=== PATIENT | male | born 1955 | race Caucasian/White ===

== ENCOUNTER 2016-11-04 20:07 | Inpatient (IN) | payer BC ==
[~2016-11-04] VITALS: Ht 167.6 cm; Wt 62.6 kg
[~2016-11-04 20:07] MED LIST: ATOR40TA PO; AZAT50TA7 PO; BUDE9TAB PO; CLOP75TA2 PO; LISI-603 PO; METO25TA20 PO; PRED50TA PO; TEMA15CA PO; ZOLP5TAB2 PO
[2016-11-04] MEDS ORDERED: ASPIRIN 81 MG TAB.CHEW ONE (20:26)
[2016-11-04 20:30] LABS: BASOPHILS # (AUTO) 0.1 /CMM (0.0-0.2); DIFF TOTAL % 100 %; EOSINOPHILS # (AUTO) 0.1 /CMM (0.0-0.7); EOSINOPHILS % (AUTO) 1.2 % (0.0-6.0); HEMATOCRIT 42 % (39-51); HEMOGLOBIN 13.9 g/dL (13.5-17.5); LYMPHOCYTES # (AUTO) 1.3 /CMM (0.8-4.8); LYMPHOCYTES % (AUTO) 20.1 % (20.0-44.0); MEAN CORPUSCULAR HEMOGLOBIN 31 PG (26.0-33.0); MEAN CORPUSCULAR HGB CONC 33 g/dl (31.0-36.0); MEAN CORPUSCULAR VOLUME 95 fL (80-96); MONOCYTES # (AUTO) 0.8 /CMM (0.1-1.30); MONOCYTES % (AUTO) 12.8 % (2.0-12.0); NEUTROPHILS # (AUTO) 4.1 /CMM (1.8-8.9); NEUTROPHILS % (AUTO) 64.9 % (43.0-81.0); PLATELET COUNT (AUTO) 345 /CMM (150-450); RED BLOOD CELL COUNT(AUTO) 4.46 MIL/uL (4.5-6.0); WHITE BLOOD COUNT (AUTO) 6.4 K/uL (4.3-11.0)
[2016-11-04] MEDS ORDERED: ASPIRIN 81 MG TAB.CHEW PO ONE (20:30)
[2016-11-04 20:41] LABS: CALCIUM, SERUM 8.9 mg/dL (8.5-10.1); POTASSIUM 3.5 mmol/L (3.5-5.1)
[2016-11-04 20:45] LABS: INR 0.96 (0.87-1.13); PROTHROMBIN TIME 10.1 SECS (9.5-12.7)
[2016-11-04 20:46] LABS: ALBUMIN 3.2 g/dL (3.4-5.0); BILIRUBIN,DIRECT 0.1 mg/dL (0.0-0.2); BILIRUBIN,TOTAL 0.4 mg/dL (0.2-1.0); INDIRECT BILIRUBIN 0.3 mg/dL (0.0-1.1); TOTAL PROTEIN, SERUM 6.9 g/dL (6.4-8.2)
[2016-11-04 20:49] LABS: TROPONIN I 0.21 ng/mL (0.00-0.056)
[2016-11-04] MEDS ORDERED: NITROGLYCERIN PACKET 1 GM PACKET TD ONE (21:00)
[2016-11-04] MEDS ORDERED: NITROGLYCERIN PACKET 1 GM PACKET ONE (21:00)
[2016-11-04] MEDS ORDERED: ENOXAPARIN SODIUM 60 MG/0.6 ML DISP.SYRIN SQ ONE ×2 (21:25→21:30)
[2016-11-04 21:45] VITALS: BP 152/72
[2016-11-04] MEDS ORDERED: ACETAMINOPHEN 325 MG TABLET PO PRN (22:00)
[2016-11-04] MEDS ORDERED: ZOLPIDEM TARTRATE 5 MG TABLET PO SCH (22:00)
[2016-11-04] MEDS ORDERED: ONDANSETRON HCL/PF 4 MG/2 ML VIAL IVP PRN (22:00)
[2016-11-04] MEDS ORDERED: TEMAZEPAM 15 MG CAPSULE PO SCH (22:00)
[2016-11-04] MEDS ORDERED: Z GUARD REMEDY 2 OZ OINT TP PRN (22:00)
[2016-11-04] MEDS ORDERED: MAG HYDROX/AL HYDROX/SIMETH 30 ML UDC PO PRN (22:00)
[2016-11-04] MEDS ORDERED: MORPHINE SULFATE INJ 2 MG/ML DISP.SYRIN IV PRN (22:00)
[2016-11-04] MEDS ORDERED: MAGNESIUM HYDROXIDE 30 ML UDC PO PRN (22:00)
[2016-11-04] MEDS ORDERED: HYDROCODONE/APAP 5/325MG 1 EACH TABLET PO PRN (22:00)
[2016-11-04] MEDS ORDERED: TEMAZEPAM 15 MG CAPSULE PO PRN (22:00)
[2016-11-04] MEDS ORDERED: ZOLPIDEM TARTRATE 5 MG TABLET PO PRN (22:00)
[2016-11-05] VITALS: BP 118/72
[2016-11-05] MEDS ORDERED: HYDROCODONE/APAP 5/325MG 1 EACH TABLET ONE (00:38)
[2016-11-05] MEDS ORDERED: NITROGLYCERIN PACKET 1 GM PACKET ONE (00:39)
[2016-11-05] MEDS: NITROGLYCERIN PACKET 1 GM PACKET TOP SCH ×2 (00:45→06:00)
[2016-11-05 04:28] VITALS: BP 113/58
[2016-11-05] MEDS ORDERED: MORPHINE SULFATE INJ 2 MG/ML DISP.SYRIN ONE (06:34)
[2016-11-05] MEDS ORDERED: PANTOPRAZOLE 40 MG TABLET.DR PO SCH (07:30)
[2016-11-05 08:00] VITALS: BP 115/61
[2016-11-05 08:36] LABS: BASOPHILS % (AUTO) 0.7 % (0.0-2.0); DIFF TOTAL % 100 %; EOSINOPHILS % (AUTO) 0.8 % (0.0-6.0); HEMATOCRIT 39 % (39-51); HEMOGLOBIN 13.1 g/dL (13.5-17.5); LYMPHOCYTES % (AUTO) 16.4 % (20.0-44.0); MEAN CORPUSCULAR HEMOGLOBIN 32 PG (26.0-33.0); MEAN CORPUSCULAR HGB CONC 33 g/dl (31.0-36.0); MEAN CORPUSCULAR VOLUME 95 fL (80-96); MONOCYTES # (AUTO) 0.7 /CMM (0.1-1.30); MONOCYTES % (AUTO) 12.3 % (2.0-12.0); NEUTROPHILS # (AUTO) 4.2 /CMM (1.8-8.9); NEUTROPHILS % (AUTO) 69.8 % (43.0-81.0); PLATELET COUNT (AUTO) 302 /CMM (150-450); RED BLOOD CELL COUNT(AUTO) 4.11 MIL/uL (4.5-6.0)
[2016-11-05 08:39] LABS: CALCIUM, SERUM 8.3 mg/dL (8.5-10.1); CREATININE 0.9 mg/dL (0.6-1.3); PHOSPHORUS 3.6 mg/dL (2.5-4.9)
[2016-11-05 08:40] VITALS: BP 115/61
[2016-11-05] MEDS ORDERED: LISINOPRIL (20MG) 20 MG TABLET PO SCH (09:00)
[2016-11-05] MEDS ORDERED: Medication Not On Formulary EA (Budesonide (Uceris) 9 MG) PO SCH (09:00)
[2016-11-05] MEDS ORDERED: ATORVASTATIN 40 MG TABLET PO SCH ×2 (09:00)
[2016-11-05] MEDS ORDERED: ASPIRIN 325 MG TABLET PO SCH (09:00)
[2016-11-05] MEDS ORDERED: CLOPIDOGREL BISULFATE 75 MG TABLET PO SCH (09:00)
[2016-11-05] MEDS ORDERED: METOPROLOL TARTRATE 25 MG TABLET PO SCH (09:00)
[2016-11-05] MEDS ORDERED: AZATHIOPRINE 50 MG TABLET PO SCH (09:00)
[2016-11-05] MEDS ORDERED: ASPIRIN 81 MG TAB.CHEW PO SCH (09:00)
[2016-11-05] MEDS ORDERED: HEPARIN INFUSION/D5W 500 ML IV PRN (09:30)
[2016-11-05] MEDS: predniSONE 20 MG TABLET PO SCH ×2 (09:30→10:43)
[2016-11-05] MEDS ORDERED: ENOXAPARIN SODIUM 60 MG/0.6 ML DISP.SYRIN SQ SCH (09:30)
[2016-11-05] MEDS ORDERED: NITROGLYCERIN 30 GM TUBE TP SCH (09:30)
[2016-11-05 10:43] VITALS: BP 149/69
[2016-11-05] MEDS ORDERED: IV SET PRIMARY PUMP SET 1 EA INFUS.SET MC ONE (10:48)
[2016-11-05] MEDS ORDERED: HEPARIN SODIUM, PORCINE 5000 UNITS/1 ML VIAL SQ ONE (11:30)
[2016-11-05] MEDS ORDERED: HEPARIN SODIUM, PORCINE 5000 UNITS/1 ML VIAL IV ONE (12:00)
== END 2016-11-05 16:16 | disposition short-term general hospital (02) | DRG 281 ==
LOC: ER 20:11 → TELE 21:50
PROVIDERS: ADMIT Internal Medicine; ATTEND Internal Medicine
DX: I21.4 Non-ST elevation (NSTEMI) myocardial infarction (principal); K51.90 Ulcerative colitis, unspecified, without complications; I25.10 Atherosclerotic heart disease of native coronary artery without angina pectoris; Z95.5 Presence of coronary angioplasty implant and graft; I10 Essential (primary) hypertension; E78.00 Pure hypercholesterolemia, unspecified
CPT/HCPCS: 36415; 71010-TC; 80048-TC; 80061-TC; 80076-TC; 83735-TC; 84100-TC; 84484-TC; 85025-TC; 85730-TC; 87081-TC; A4606; J1644; J1650; J2270; J7500; Z7610

== ENCOUNTER 2016-12-17 19:22 | Inpatient (IN) | payer BC ==
[~2016-12-17] VITALS: Ht 172.7 cm; Wt 59.0 kg
[~2016-12-17 19:22] MED LIST changes: -PRED50TA PO
[2016-12-17] MEDS ORDERED: methylPREDNISolone SOD SUCC 125 MG/2ML VIAL ONE (19:47)
[2016-12-17 19:50] LABS: BASOPHILS # (AUTO) 0.1 /CMM (0.0-0.2); BASOPHILS % (AUTO) 0.7 % (0.0-2.0); DIFF TOTAL % 100 %; EOSINOPHILS # (AUTO) 0.1 /CMM (0.0-0.7); HEMATOCRIT 41 % (39-51); HEMOGLOBIN 14.1 g/dL (13.5-17.5); LYMPHOCYTES # (AUTO) 0.8 /CMM (0.8-4.8); LYMPHOCYTES % (AUTO) 9.5 % (20.0-44.0); MEAN CORPUSCULAR HEMOGLOBIN 32 PG (26.0-33.0); MEAN CORPUSCULAR HGB CONC 34 g/dl (31.0-36.0); MEAN CORPUSCULAR VOLUME 93 fL (80-96); MONOCYTES # (AUTO) 0.9 /CMM (0.1-1.30); MONOCYTES % (AUTO) 9.9 % (2.0-12.0); NEUTROPHILS # (AUTO) 6.7 /CMM (1.8-8.9); NEUTROPHILS % (AUTO) 78.9 % (43.0-81.0); PLATELET COUNT (AUTO) 378 /CMM (150-450); RED BLOOD CELL COUNT(AUTO) 4.45 MIL/uL (4.5-6.0); WHITE BLOOD COUNT (AUTO) 8.6 K/uL (4.3-11.0)
[2016-12-17] MEDS ORDERED: methylPREDNISolone SOD SUCC 125 MG/2ML VIAL IV ONE (20:00)
[2016-12-17 20:06] LABS: ALANINE AMINOTRANSFERASE 16 U/L (12-78); ALBUMIN 3.7 g/dL (3.4-5.0); ANION GAP 9 (5-14); ASPARTATE AMINOTRANSFERASE 14 U/L (15-37); BILIRUBIN,DIRECT 0.1 mg/dL (0.0-0.2); BILIRUBIN,TOTAL 0.3 mg/dL (0.2-1.0); CALCIUM, SERUM 8.7 mg/dL (8.5-10.1); CARBON DIOXIDE 30 mmol/L (21-32); CHLORIDE 99 mmol/L (98-107); CREATININE 0.9 mg/dL (0.6-1.3); GFR 85 mL/min (>60); GLUCOSE 94 mg/dL (74-106); INDIRECT BILIRUBIN 0.2 mg/dL (0.0-1.1); SODIUM SERUM 134 mmol/L (136-145); TOTAL PROTEIN, SERUM 7.3 g/dL (6.4-8.2); UREA NITROGEN, BLOOD 10 mg/dL (7-18)
[2016-12-17 20:09] LABS: TROPONIN I < 0.017 ng/mL (0.00-0.056)
[2016-12-17 20:16] LABS: INR 0.96 (0.87-1.13); PROTHROMBIN TIME 10.1 SECS (9.5-12.7)
[2016-12-17 21:25] VITALS: BP 140/78
[2016-12-17] MEDS ORDERED: ATORVASTATIN 40 MG TABLET ONE (23:47)
[2016-12-17] MEDS ORDERED: TEMAZEPAM 15 MG CAPSULE ONE (23:47)
[2016-12-17] MEDS: ATORVASTATIN 40 MG TABLET PO SCH (23:52)
[2016-12-17] MEDS: TEMAZEPAM 15 MG CAPSULE PO SCH (23:52)
[2016-12-18] VITALS (7 sets, daily range): BP systolic 97–129; BP diastolic 67–78
[2016-12-18] MEDS ORDERED: ONDANSETRON HCL/PF 4 MG/2 ML VIAL IV PRN
[2016-12-18] MEDS ORDERED: ACETAMINOPHEN 325 MG TABLET PO PRN
[2016-12-18] MEDS ORDERED: IV SET PRIMARY PUMP SET 1 EA INFUS.SET MC ONE (00:02)
[2016-12-18] MEDS ORDERED: IV NS 0.9% 1,000 ML ONE (00:02)
[2016-12-18] MEDS: IV NS 0.9% 1,000 ML IV PRN ×2 (00:14→13:53)
[2016-12-18 00:42] LABS: HEMOGLOBIN 13.7 g/dL (13.5-17.5)
[2016-12-18 07:03] LABS: DIFF TOTAL % 100 %; HEMATOCRIT 39 % (39-51); HEMOGLOBIN 13.1 g/dL (13.5-17.5); LYMPHOCYTES # (AUTO) 0.4 /CMM (0.8-4.8); LYMPHOCYTES % (AUTO) 6.3 % (20.0-44.0); MEAN CORPUSCULAR HEMOGLOBIN 31 PG (26.0-33.0); MEAN CORPUSCULAR HGB CONC 34 g/dl (31.0-36.0); MEAN CORPUSCULAR VOLUME 93 fL (80-96); MONOCYTES % (AUTO) 0.5 % (2.0-12.0); NEUTROPHILS # (AUTO) 6.3 /CMM (1.8-8.9); NEUTROPHILS % (AUTO) 93.2 % (43.0-81.0); PLATELET COUNT (AUTO) 361 /CMM (150-450); RED BLOOD CELL COUNT(AUTO) 4.19 MIL/uL (4.5-6.0); WHITE BLOOD COUNT (AUTO) 6.7 K/uL (4.3-11.0)
[2016-12-18 07:18] LABS: ALBUMIN 3.2 g/dL (3.4-5.0); BILIRUBIN,TOTAL 0.3 mg/dL (0.2-1.0); CALCIUM, SERUM 8.9 mg/dL (8.5-10.1); CREATININE 0.9 mg/dL (0.6-1.3); PHOSPHORUS 3.6 mg/dL (2.5-4.9); POTASSIUM 4.4 mmol/L (3.5-5.1); TOTAL PROTEIN, SERUM 6.7 g/dL (6.4-8.2)
[2016-12-18 07:22] LABS: C-REACTIVE PROTEIN 0.7 mg/dL (0.0-0.9)
[2016-12-18 07:39] LABS: ERYTHROCYTE SEDIMENTATION RATE 12 MM/HR (0-20)
[2016-12-18] MEDS: AZATHIOPRINE 50 MG TABLET PO SCH (08:49)
[2016-12-18] MEDS: ATORVASTATIN 40 MG TABLET PO SCH (08:49)
[2016-12-18] MEDS: METOPROLOL TARTRATE 25 MG TABLET PO SCH (08:50)
[2016-12-18] MEDS: LISINOPRIL (20MG) 20 MG TABLET PO SCH (08:50)
[2016-12-18] MEDS ORDERED: BUDESONIDE 3 MG CAP.SR.24H PO SCH (09:00)
[2016-12-18] MEDS ORDERED: BUDESONIDE 3 MG PO SCH (09:00)
[2016-12-18] MEDS: ASPIRIN 81 MG TAB.CHEW PO SCH (11:40)
[2016-12-18] MEDS: CLOPIDOGREL BISULFATE 75 MG TABLET PO SCH (11:40)
[2016-12-18] MEDS ORDERED: MENTHOL/CETYLPYRD (CEPACOL) 1 LOZ LOZENGE PO PRN (17:30)
[2016-12-18] MEDS: TEMAZEPAM 15 MG CAPSULE PO SCH (21:54)
[2016-12-19] VITALS: BP 98/43
[2016-12-19] MEDS ORDERED: GUAIFENESIN/D-METHORPHAN HB 5 ML UDC ONE (00:21)
[2016-12-19] MEDS: GUAIFENESIN/D-METHORPHAN HB 5 ML UDC PO PRN ×2 (00:25→07:39)
[2016-12-19] MEDS: IV NS 0.9% 1,000 ML IV PRN (03:25)
[2016-12-19 04:00] VITALS: BP 103/46
[2016-12-19 07:06] LABS: THYROID STIMULATING HORMONE 1.902 uIU/mL (0.358-3.74); URIC ACID 4.5 mg/dL (2.6-7.2)
[2016-12-19 07:14] VITALS: BP 112/50
[2016-12-19] MEDS: ASPIRIN 81 MG TAB.CHEW PO SCH (08:31)
[2016-12-19] MEDS: ATORVASTATIN 40 MG TABLET PO SCH (08:31)
[2016-12-19 08:32] VITALS: BP 123/61
[2016-12-19] MEDS: METOPROLOL TARTRATE 25 MG TABLET PO SCH (08:32)
[2016-12-19] MEDS: AZATHIOPRINE 50 MG TABLET PO SCH (08:32)
[2016-12-19] MEDS: LISINOPRIL (20MG) 20 MG TABLET PO SCH (08:32)
[2016-12-19] MEDS: CLOPIDOGREL BISULFATE 75 MG TABLET PO SCH (08:33)
[2016-12-19 08:34] LABS: RETICULOCYTE COUNT 1.1 % (0.6-2.5)
[2016-12-19 09:20] LABS: WHITE BLOOD COUNT (AUTO) 7.5 K/uL (4.3-11.0)
[2016-12-19 09:21] LABS: BASOPHILS % (AUTO) 0.3 % (0.0-2.0); DIFF TOTAL % 100 %; EOSINOPHILS % (AUTO) 0.1 % (0.0-6.0); HEMATOCRIT 30 % (39-51); HEMOGLOBIN 9.9 g/dL (13.5-17.5); LYMPHOCYTES % (AUTO) 14.7 % (20.0-44.0); MEAN CORPUSCULAR HEMOGLOBIN 31 PG (26.0-33.0); MEAN CORPUSCULAR HGB CONC 33 g/dl (31.0-36.0); MEAN CORPUSCULAR VOLUME 94 fL (80-96); MONOCYTES % (AUTO) 12.5 % (2.0-12.0); NEUTROPHILS % (AUTO) 72.4 % (43.0-81.0); PLATELET COUNT (AUTO) 299 /CMM (150-450)
[2016-12-19 09:22] LABS: LYMPHOCYTES # (AUTO) 1.1 /CMM (0.8-4.8); MONOCYTES # (AUTO) 0.9 /CMM (0.1-1.30); NEUTROPHILS # (AUTO) 5.4 /CMM (1.8-8.9)
[2016-12-19] MEDS ORDERED: ASPI81TA2 PO ×2 (10:01→16:56)
[2016-12-19] MEDS ORDERED: PEG4000S4 GT (10:01)
[2016-12-19] MEDS ORDERED: METO25TA3 PO (16:56)
== END 2016-12-19 11:15 | disposition home or self-care (01) | DRG 386 ==
LOC: ER 19:25 → TELE 20:28 → MED 12-19 08:48
DX: K51.911 Ulcerative colitis, unspecified with rectal bleeding (principal); E87.1 Hypo-osmolality and hyponatremia; E78.00 Pure hypercholesterolemia, unspecified; I10 Essential (primary) hypertension; I25.2 Old myocardial infarction; Z95.5 Presence of coronary angioplasty implant and graft; K62.1 Rectal polyp; I25.10 Atherosclerotic heart disease of native coronary artery without angina pectoris; Z96.659 Presence of unspecified artificial knee joint; Z79.02 Long term (current) use of antithrombotics/antiplatelets; Z79.82 Long term (current) use of aspirin
CPT/HCPCS: 36415; 80048-TC; 80053-TC; 80061-TC; 80076-TC; 82306; 82728-TC; 82746; 83540-TC; 83615-TC; 83735-TC; 84100-TC; 84443-TC; 84484-TC; 84550-TC; 85025-TC; 85027-TC; 85045-TC; 85652-TC; 85730-TC; 86140-TC; 86850-TC; 87081-TC; A4606; J2930; J7030; J7500; Z7610

== ENCOUNTER 2016-12-19 14:35 | Inpatient (IN) | payer BC ==
[~2016-12-19] VITALS: Ht 165.1 cm; Wt 70.3 kg
[~2016-12-19 14:35] MED LIST changes: +ASPI81TA2 PO; +PEG4000S4 GT
[2016-12-19] MEDS ORDERED: IV NS 0.9% 500 ML IV ONE (16:00)
[2016-12-19] MEDS ORDERED: IV NS 0.9% 500 ML BAG IV ONE (16:00)
[2016-12-19 16:24] LABS: BASOPHILS % (AUTO) 0.3 % (0.0-2.0); DIFF TOTAL % 100 %; EOSINOPHILS % (AUTO) 0.7 % (0.0-6.0); HEMATOCRIT 35 % (39-51); HEMOGLOBIN 11.3 g/dL (13.5-17.5); LYMPHOCYTES # (AUTO) 1.1 /CMM (0.8-4.8); LYMPHOCYTES % (AUTO) 16.4 % (20.0-44.0); MEAN CORPUSCULAR HEMOGLOBIN 31 PG (26.0-33.0); MEAN CORPUSCULAR HGB CONC 33 g/dl (31.0-36.0); MEAN CORPUSCULAR VOLUME 95 fL (80-96); MONOCYTES % (AUTO) 13.9 % (2.0-12.0); NEUTROPHILS # (AUTO) 4.7 /CMM (1.8-8.9); NEUTROPHILS % (AUTO) 68.7 % (43.0-81.0); PLATELET COUNT (AUTO) 356 /CMM (150-450); RED BLOOD CELL COUNT(AUTO) 3.64 MIL/uL (4.5-6.0); WHITE BLOOD COUNT (AUTO) 6.9 K/uL (4.3-11.0)
[2016-12-19 16:47] LABS: ALBUMIN 3.3 g/dL (3.4-5.0); BILIRUBIN,DIRECT 0.1 mg/dL (0.0-0.2); BILIRUBIN,TOTAL 0.3 mg/dL (0.2-1.0); CALCIUM, SERUM 8.6 mg/dL (8.5-10.1); CREATININE 0.9 mg/dL (0.6-1.3); INDIRECT BILIRUBIN 0.2 mg/dL (0.0-1.1); POTASSIUM 4.6 mmol/L (3.5-5.1); TOTAL PROTEIN, SERUM 6.6 g/dL (6.4-8.2)
[2016-12-19 16:50] LABS: INR 0.97 (0.87-1.13); PROTHROMBIN TIME 10.5 SECS (9.5-12.7)
[2016-12-19] MEDS ORDERED: METO25TA3 PO (16:56)
[2016-12-19] MEDS ORDERED: ASPI81TA2 PO (16:56)
[2016-12-19] MEDS ORDERED: Z GUARD REMEDY 2 OZ OINT TP PRN (17:30)
[2016-12-19] MEDS ORDERED: ONDANSETRON HCL/PF 4 MG/2 ML VIAL IVP PRN (17:30)
[2016-12-19] MEDS ORDERED: PEG 3350/NA SULF,BICARB,CL/KCL 4,000 ML BOTTLE GT ONE (17:30)
[2016-12-19] MEDS ORDERED: ACETAMINOPHEN 325 MG TABLET PO PRN (17:30)
[2016-12-19] MEDS ORDERED: HYDROCODONE/APAP 5/325MG 1 EACH TABLET PO PRN (17:30)
[2016-12-19] MEDS ORDERED: MAG HYDROX/AL HYDROX/SIMETH 30 ML UDC PO PRN (17:30)
[2016-12-19] MEDS ORDERED: ZOLPIDEM TARTRATE 5 MG TABLET PO PRN (17:30)
[2016-12-19] MEDS ORDERED: MAGNESIUM HYDROXIDE 30 ML UDC PO PRN (17:30)
[2016-12-19 19:10] VITALS: BP 126/72
[2016-12-19 20:00] VITALS: BP 145/73
[2016-12-19] MEDS ORDERED: ATORVASTATIN 40 MG TABLET PO SCH (22:00)
[2016-12-20] MEDS ORDERED: HOME MED MISCELLANEOUS PO ONE
[2016-12-20 01:30] VITALS: BP_SYST 144
[2016-12-20 06:53] VITALS: BP 131/72
[2016-12-20 07:15] LABS: BASOPHILS # (AUTO) 0.1 /CMM (0.0-0.2); BASOPHILS % (AUTO) 0.9 % (0.0-2.0); DIFF TOTAL % 100 %; EOSINOPHILS # (AUTO) 0.1 /CMM (0.0-0.7); EOSINOPHILS % (AUTO) 1.4 % (0.0-6.0); HEMATOCRIT 32 % (39-51); HEMOGLOBIN 10.8 g/dL (13.5-17.5); LYMPHOCYTES # (AUTO) 1.4 /CMM (0.8-4.8); LYMPHOCYTES % (AUTO) 21.3 % (20.0-44.0); MEAN CORPUSCULAR HEMOGLOBIN 32 PG (26.0-33.0); MEAN CORPUSCULAR HGB CONC 34 g/dl (31.0-36.0); MEAN CORPUSCULAR VOLUME 93 fL (80-96); MONOCYTES # (AUTO) 0.8 /CMM (0.1-1.30); MONOCYTES % (AUTO) 12.8 % (2.0-12.0); NEUTROPHILS # (AUTO) 4.2 /CMM (1.8-8.9); NEUTROPHILS % (AUTO) 63.6 % (43.0-81.0); PLATELET COUNT (AUTO) 331 /CMM (150-450); RED BLOOD CELL COUNT(AUTO) 3.38 MIL/uL (4.5-6.0); WHITE BLOOD COUNT (AUTO) 6.6 K/uL (4.3-11.0)
[2016-12-20 07:18] LABS: CALCIUM, SERUM 8.6 mg/dL (8.5-10.1); CREATININE 0.9 mg/dL (0.6-1.3); PHOSPHORUS 3.3 mg/dL (2.5-4.9); POTASSIUM 3.6 mmol/L (3.5-5.1)
[2016-12-20 08:36] LABS: IRON, SERUM 40 ug/dl (50-175); PERCENT SATURATION 15 % (14-33); TOTAL IRON BINDING CAPACITY 260 ug/dl (250-450)
[2016-12-20 08:50] VITALS: BP 119/51
[2016-12-20] MEDS ORDERED: METOPROLOL SUCCINATE 25 MG TAB.SR.24H PO SCH (09:00)
[2016-12-20] MEDS ORDERED: PANTOPRAZOLE 40 MG VIAL IV SCH (09:00)
[2016-12-20] MEDS ORDERED: AZATHIOPRINE 50 MG TABLET PO SCH (09:00)
[2016-12-20] MEDS ORDERED: LISINOPRIL (20MG) 20 MG TABLET PO SCH (09:00)
[2016-12-20 09:12] VITALS: BP 119/51
[2016-12-20] MEDS ORDERED: CLOPIDOGREL BISULFATE 75 MG TABLET PO SCH (10:50)
[2016-12-20] MEDS ORDERED: ASPIRIN 81 MG TAB.CHEW PO SCH (10:51)
[2016-12-20] MEDS ORDERED: methylPREDNISolone SOD SUCC 125 MG/2ML VIAL IV ONE (11:30)
== END 2016-12-20 13:30 | disposition home or self-care (01) | DRG 387 ==
LOC: ER 14:37 → MED 17:23 → TELE 20:57
PROVIDERS: ADMIT Family Medicine; ATTEND Family Medicine
PROC: 0DBE8ZX Excision of Large Intestine, Via Natural or Artificial Opening Endoscopic, Diagnostic (ICD-10-PCS; principal; 2016-12-19)
DX: K51.911 Ulcerative colitis, unspecified with rectal bleeding (principal); E78.5 Hyperlipidemia, unspecified; I10 Essential (primary) hypertension; I25.10 Atherosclerotic heart disease of native coronary artery without angina pectoris; Z95.5 Presence of coronary angioplasty implant and graft; E78.00 Pure hypercholesterolemia, unspecified; Z96.659 Presence of unspecified artificial knee joint
CPT/HCPCS: 36415; 80048-TC; 80076-TC; 83540-TC; 83735-TC; 84100-TC; 85025-TC; 85730-TC; 87081-TC; 88305-TC; A4606; C9113; J2930; J7040; J7500; Z7610

== ENCOUNTER 2017-07-13 14:06 | Emergency (ER) | payer BC ==
[~2017-07-13] VITALS: Ht 167.6 cm; Wt 56.7 kg
[~2017-07-13 14:06] MED LIST changes: -METO25TA20 PO; +METO25TA3 PO; -PEG4000S4 GT; -ZOLP5TAB2 PO
--- NOTE | 2017-07-13 14:15 | NUR ---
PT CAME IN WITH C/O NOSE BLEED x 3 HRS. TAKES ASA PO DAILY. SEEN BY MD FOR EVAL. VSS. SAFETY AND COMFORT MEASURES PROVIDED. WILL MONITOR.
--- NOTE | 2017-07-13 14:20 | NUR ---
AT FOR EVAL AND TREATMENT.
--- NOTE | 2017-07-13 15:30 | NUR ---
PT STILL NOTED BLEEDING. AT BS.
--- NOTE | 2017-07-13 16:40 | NUR ---
PT CONTINUES TO C/O MINIMAL BLEEDING. MD AWARE. WILL CONTINUE TO MONITOR.
--- NOTE | 2017-07-13 18:00 | NUR ---
AT FOR RHINO ROCKET INSERTION.
--- NOTE | 2017-07-13 18:17 | NUR ---
Patient discharged to home in stable condition. Written and verbal after care instructions given. Patient verbalizes understanding of instruction.
[2017-07-13 18:18] VITALS: BP 145/71
[2017-07-14] MEDS ORDERED: SERT100T PO (08:25)
[2017-07-14] MEDS ORDERED: OMEP20CA10 PO (08:25)
== END 2017-07-13 18:19 | disposition home or self-care (01) ==
LOC: ER 14:09
DX: R04.0 Epistaxis (principal); I10 Essential (primary) hypertension; Z79.82 Long term (current) use of aspirin; D68.318 Other hemorrhagic disorder due to intrinsic circulating anticoagulants, antibodies, or inhibitors
CPT/HCPCS: A4606; J2405; J3490; Z7610

== ENCOUNTER 2017-07-14 06:55 | Inpatient (IN) | payer BC ==
[2017-07-14] VITALS (7 sets, daily range): BP systolic 129–161; BP diastolic 59–77
[~2017-07-14] VITALS: Ht 160 cm; Wt 56.2 kg
--- NOTE | 2017-07-14 07:00 | NUR ---
61 YO MALE BB RA FROM HOME. PT IS ALERT X 3, C/O A NEAR SYNCOPE EPISODE AT HOME. PT STATES HE WAS IN A LAYING POSITION, GOT UP TO USE RESTOOM, BECAME WEAK, DIZZY, NAUSEA, DIAPHORETIC, CALLED 911. NAD NOTED, SKIN WARM AND DRY. RR EVEN AND UNLABORED. PT GOWNED,PLACED ON DELIVERY AND INSTALLATION SUBCONTRACTOR. AWAITING ORDERS FROM PROVIDER, WILL CONTINUE TO MONITOR
--- NOTE | 2017-07-14 07:05 | NUR ---
20G LEFT AC IV STARTED, BLOOD SAMPLE OBTAINED AND SENT TO LAB
--- NOTE | 2017-07-14 07:09 | NUR ---
CORA WEEKS MD AT BED SIDE FOR EVAL
--- NOTE | 2017-07-14 07:16 | NUR ---
MEDICATED PT ORDERED
[2017-07-14] MEDS ORDERED: ONDANSETRON HCL/PF 4 MG/2 ML VIAL IV ONE (07:30)
[2017-07-14] MEDS ORDERED: IV NS 0.9% 500 ML BAG IV ONE (07:30)
[2017-07-14 07:35] LABS: BASOPHILS % (AUTO) 0.3 % (0.0-2.0); EOSINOPHILS % (AUTO) 0.1 % (0.0-6.0); HEMATOCRIT 36 % (39-51); HEMOGLOBIN 11.9 g/dL (13.5-17.5); LYMPHOCYTES # (AUTO) 0.6 /CMM (0.8-4.8); LYMPHOCYTES % (AUTO) 9.6 % (20.0-44.0); MEAN CORPUSCULAR HEMOGLOBIN 31 PG (26.0-33.0); MEAN CORPUSCULAR HGB CONC 33 g/dl (31.0-36.0); MEAN CORPUSCULAR VOLUME 92 fL (80-96); MONOCYTES # (AUTO) 0.9 /CMM (0.1-1.30); PLATELET COUNT (AUTO) 292 /CMM (150-450); RDW COEFFICIENT OF VARIATION 16.9 (11.5-15.0); RED BLOOD CELL COUNT(AUTO) 3.87 MIL/uL (4.5-6.0); WHITE BLOOD COUNT (AUTO) 6.6 K/uL (4.3-11.0)
[2017-07-14 07:44] LABS: CALCIUM, SERUM 8.2 mg/dL (8.5-10.1); CREATININE 0.7 mg/dL (0.6-1.3)
[2017-07-14 07:51] LABS: POTASSIUM 3.6 mmol/L (3.5-5.1)
[2017-07-14] MEDS: IV NS 0.9% 1,000 ML IV ONE ×2 (08:10→08:16)
[2017-07-14 08:19] LABS: APPEARANCE,URINE CLEAR (CLEAR); BILIRUBIN,URINE NEGATIVE (NEGATIVE); BLOOD, URINE NEGATIVE Ery/uL (NEGATIVE); COLOR,URINE YELLOW (YELLOW); KETONES,URINE TRACE (NEGATIVE); LEUKOCYTE ESTERASE ,URINE NEGATIVE (NEGATIVE); NITRITE, URINE NEGATIVE (NEGATIVE); PROTEIN,URINE NEGATIVE (NEGATIVE); UGLUCOSE NEGATIVE (NEGATIVE); UROBILINOGEN,URINE 0.2 EU/dL (0.2)
[2017-07-14 08:23] LABS: BACTERIA,URINE None seen /HPF (None Seen); RBC,URINE 0-2 /HPF (0-2); SQUAMOUS EPITHELIAL CELL,UR 0-2 /HPF (None Seen); WBC,URINE 0-2 /HPF (0-3)
[2017-07-14] MEDS ORDERED: OMEP20CA10 PO (08:25)
[2017-07-14] MEDS ORDERED: SERT100T PO (08:25)
[2017-07-14 08:27] LABS: POTASSIUM RNDM,URINE 15 mmol/L (25-125); URINE SODIUM, RANDOM 24 mmol/l (40-220)
--- NOTE | 2017-07-14 09:25 | NUR ---
DR WEEKS ON PHONE WITH DR MEYERS
[2017-07-14] MEDS ORDERED: MORPHINE SULFATE INJ 2 MG/ML DISP.SYRIN IV ONE (09:30)
[2017-07-14] MEDS ORDERED: MORPHINE SULFATE INJ 2 MG/ML DISP.SYRIN ONE (09:31)
--- NOTE | 2017-07-14 09:35 | NUR ---
CALLED [phone]- NO NURSE ASSIGNED TO ROOM.
--- NOTE | 2017-07-14 10:07 | NUR ---
REPORT GIVEN TO DEIDRA KIDD FOR [facility] ROOM 116-1.
--- NOTE | 2017-07-14 10:15 | NUR ---
[facility] NOTE- RECEIVED PT FROM ER VIA JUANA. PT A/O X4. ON ROOM AIR, RESPIRATIONS EVEN AND UNLABORED, NO SOB OR DISTRESS PRESENT. TELE MONITOR REVEALS SINUS RHYTHM, HR= 64. LAC 20G FLUSHED, PATENT AND INTACT. IV SITE FREE OF REDNESS, SWELLING AND INFLAMMATION. PT CONTINENT OF URINE & STOOL, URINAL AT BEDSIDE. SAFETY MEASURES TAKEN: BED LOCKED AND IN LOW POSITION, SIDE RAILS UP X2, BED ALARM ON AND CALL LIGHT WITHIN REACH, WILL CONTINUE TO MONITOR.
[2017-07-14] MEDS ORDERED: IV NS 0.9% 1,000 ML IV PRN (10:23)
[2017-07-14] MEDS ORDERED: MAG HYDROX/AL HYDROX/SIMETH 30 ML UDC PO PRN (10:30)
[2017-07-14] MEDS ORDERED: Z GUARD REMEDY 2 OZ OINT TP PRN (10:30)
[2017-07-14] MEDS ORDERED: HYDROCODONE/APAP 5/325MG 1 EACH TABLET PO PRN (10:30)
[2017-07-14] MEDS ORDERED: ACETAMINOPHEN 325 MG TABLET PO PRN (10:30)
[2017-07-14] MEDS ORDERED: MAGNESIUM HYDROXIDE 30 ML UDC PO PRN (10:30)
[2017-07-14 10:40] LABS: OSMOLALITY,URINE 514 mOS/kg (340-1090)
--- NOTE | 2017-07-14 10:45 | NUR ---
OFELIA NOTE- DR. MUSTAFA AT BEDSIDE. PER MD, 1) OK TO DOWNGRADE PT TO TELE, 2) OBTAIN ORTHOSTATIC VITALS AND 3) REPEAT LABS. ORDERS PLACED. WILL CONTINUE TO MONITOR.
--- NOTE | 2017-07-14 11:01 | NUR ---
TELE NOTE- ORTHOSTATIC VITALS DONE. RESULTS UNDER VITALS (LONG FORM). WILL CONTINUE TO MONITOR.
[2017-07-14] MEDS: ONDANSETRON HCL/PF 4 MG/2 ML VIAL IVP PRN ×2 (11:08→17:08)
[2017-07-14] MEDS: IV NS 0.9% 1,000 ML IV PRN ×2 (11:11→14:53)
[2017-07-14 11:18] LABS: ALBUMIN 3.5 g/dL (3.4-5.0); BILIRUBIN,DIRECT 0.1 mg/dL (0.0-0.2); BILIRUBIN,TOTAL 0.4 mg/dL (0.2-1.0); MAGNESIUM 1.7 mg/dL (1.8-2.4); TOTAL PROTEIN, SERUM 6.3 g/dL (6.4-8.2)
[2017-07-14 11:29] LABS: THYROID STIMULATING HORMONE 5.479 uIU/mL (0.358-3.74)
[2017-07-14 12:29] LABS: BASOPHILS % (AUTO) 0.2 % (0.0-2.0); EOSINOPHILS % (AUTO) 0.3 % (0.0-6.0); HEMATOCRIT 37 % (39-51); HEMOGLOBIN 12.3 g/dL (13.5-17.5); LYMPHOCYTES # (AUTO) 0.7 /CMM (0.8-4.8); MEAN CORPUSCULAR HEMOGLOBIN 30 PG (26.0-33.0); MEAN CORPUSCULAR HGB CONC 33 g/dl (31.0-36.0); MEAN CORPUSCULAR VOLUME 92 fL (80-96); MONOCYTES % (AUTO) 12.4 % (2.0-12.0); NEUTROPHILS # (AUTO) 6.1 /CMM (1.8-8.9); NEUTROPHILS % (AUTO) 78.1 % (43.0-81.0); PLATELET COUNT (AUTO) 313 /CMM (150-450); RDW COEFFICIENT OF VARIATION 16.7 (11.5-15.0); RED BLOOD CELL COUNT(AUTO) 4.04 MIL/uL (4.5-6.0); WHITE BLOOD COUNT (AUTO) 7.8 K/uL (4.3-11.0)
[2017-07-14] MEDS: POTASSIUM CHLORIDE 20 MEQ TAB.PRT.SR PO SCH ×3 (12:38→14:52)
[2017-07-14 12:40] LABS: CREATININE 0.7 mg/dL (0.6-1.3)
[2017-07-14] MEDS: Magnesium 1GM/D5W 100ML PREMIX 100 ML IV SCH ×2 (12:49→13:55)
[2017-07-14] MEDS ORDERED: K PHOS NEUTRAL 250 MG TABLET PO ONE (13:30)
--- NOTE | 2017-07-14 14:30 | NUR ---
TELE NOTE- PT C/O PRESSURE/PAIN IN LEFT NOSTRIL WHERE NASAL PACKING, RHINO ROCKET IS. PT REQUESTING TO DEFLATE THE BALLOON. INFORMED DR. MEYERS AND OBTAINED ORDER TO SLIGHTLY DEFLATE THE BALLOON. BALLOON DEFLATED BY 0.5 ML OF AIR. WILL CONTINUE TO MONITOR.
[2017-07-14] MEDS: SOD FERRIC GLUC 125 MG in IV NS 0.9% 100 ML IV SCH (14:53)
[2017-07-14] MEDS: MORPHINE SULFATE INJ 2 MG/ML DISP.SYRIN IV PRN ×2 (14:54→21:50)
[2017-07-14] MEDS ORDERED: oxyCODONE/APAP (5/325 MG) 1 UDTAB TABLET PO PRN (15:00)
--- NOTE | 2017-07-14 17:05 | NUR ---
TELE NOTE- INFORMED DR. MEYERS PT HAS HAD 4 BOWEL MOVEMENTS UPON ARRIVAL TO FLOOR. FIRST BM WAS BLACK AND LOOSE. MOST RECENT BM WAS SOFT IN CONSISTENCY BUT REMAINS BLACK. AWARE AND HAS ALREADY ORDERED NEXT LABS AT 2100.
[2017-07-14] MEDS: HYDROCODONE/APAP 10/325MG 1 EA TABLET PO PRN ×2 (18:39→22:44)
[2017-07-14 21:11] LABS: BASOPHILS % (AUTO) 0.1 % (0.0-2.0); HEMATOCRIT 35 % (39-51); HEMOGLOBIN 11.8 g/dL (13.5-17.5); LYMPHOCYTES # (AUTO) 0.4 /CMM (0.8-4.8); LYMPHOCYTES % (AUTO) 5.6 % (20.0-44.0); MEAN CORPUSCULAR HEMOGLOBIN 31 PG (26.0-33.0); MEAN CORPUSCULAR HGB CONC 34 g/dl (31.0-36.0); MEAN CORPUSCULAR VOLUME 91 fL (80-96); MONOCYTES # (AUTO) 0.9 /CMM (0.1-1.30); MONOCYTES % (AUTO) 13.7 % (2.0-12.0); NEUTROPHILS # (AUTO) 5.1 /CMM (1.8-8.9); NEUTROPHILS % (AUTO) 80.6 % (43.0-81.0); PLATELET COUNT (AUTO) 320 /CMM (150-450); RDW COEFFICIENT OF VARIATION 17.3 (11.5-15.0); RED BLOOD CELL COUNT(AUTO) 3.86 MIL/uL (4.5-6.0); WHITE BLOOD COUNT (AUTO) 6.3 K/uL (4.3-11.0)
[2017-07-14 21:26] LABS: CALCIUM, SERUM 8.1 mg/dL (8.5-10.1); CREATININE 0.7 mg/dL (0.6-1.3); POTASSIUM 4.7 mmol/L (3.5-5.1)
[2017-07-14] MEDS: ATORVASTATIN 40 MG TABLET PO SCH (21:50)
[2017-07-15] VITALS (11 sets, daily range): BP systolic 102–148; BP diastolic 55–66
[2017-07-15] MEDS: ZOLPIDEM TARTRATE 5 MG TABLET PO PRN (01:37)
[2017-07-15] MEDS: HYDROCODONE/APAP 10/325MG 1 EA TABLET PO PRN ×5 (03:51→23:14)
--- NOTE | 2017-07-15 06:37 | NUR ---
RN NOTES 0600 condition unchanged. no further nose bleeding noted. However, Rhino Racket still on left nare with air deflated by day shift. With on and off c/o left nare pain; pain meds given as needed with relief provided. No c/o dizziness. Call light within reach.
[2017-07-15 06:44] LABS: BASOPHILS % (AUTO) 0.4 % (0.0-2.0); HEMATOCRIT 36 % (39-51); HEMOGLOBIN 11.8 g/dL (13.5-17.5); LYMPHOCYTES # (AUTO) 0.6 /CMM (0.8-4.8); LYMPHOCYTES % (AUTO) 9.8 % (20.0-44.0); MEAN CORPUSCULAR HEMOGLOBIN 31 PG (26.0-33.0); MEAN CORPUSCULAR HGB CONC 33 g/dl (31.0-36.0); MEAN CORPUSCULAR VOLUME 93 fL (80-96); MONOCYTES % (AUTO) 16.4 % (2.0-12.0); NEUTROPHILS # (AUTO) 4.2 /CMM (1.8-8.9); NEUTROPHILS % (AUTO) 73.4 % (43.0-81.0); PLATELET COUNT (AUTO) 295 /CMM (150-450); RDW COEFFICIENT OF VARIATION 17.4 (11.5-15.0); RED BLOOD CELL COUNT(AUTO) 3.84 MIL/uL (4.5-6.0); WHITE BLOOD COUNT (AUTO) 5.8 K/uL (4.3-11.0)
--- NOTE | 2017-07-15 07:15 | NUR ---
RN INITIAL NOTES: REC'D PT AWAKE ON BED, NOT IN ANY DISTRESS, A/O X4, C/O PAIN ON L NARE 04/28. ON TELEMONITOR, SR W/ HR 73 BPM. ON ROOM AIR, NO SOB. HAS RHINO RACKET ON L NARE IN PLACE AND INTACT, NO ACTIVE BLEEDING NOTED. HAS L AC G20 PL PATENT & INTACT W/ NO S/SX OF INFECTION/ INFILTRATION NOTED. ORTHOSTATIC BP TAKEN AND RECORDED. PROVIDED COMFORT & SAFETY MEASURES. BED KEPT LOW & IN LOCKED POS. CALL LIGHT PLACED W/IN REACH. WILL CONTINUE TO MONITOR AND ATTEND NEEDS.
[2017-07-15 07:19] LABS: ALANINE AMINOTRANSFERASE 30 U/L (12-78); ALBUMIN 3.3 g/dL (3.4-5.0); ALKALINE PHOSPHATASE 77 U/L (46-116); ASPARTATE AMINOTRANSFERASE 23 U/L (15-37); BILIRUBIN,TOTAL 0.3 mg/dL (0.2-1.0); CALCIUM, SERUM 8.2 mg/dL (8.5-10.1); CARBON DIOXIDE 28 mmol/L (21-32); CHLORIDE 93 mmol/L (98-107); CREATININE 0.7 mg/dL (0.6-1.3); GLUCOSE 96 mg/dL (74-106); MAGNESIUM 2.1 mg/dL (1.8-2.4); PHOSPHORUS 2.2 mg/dL (2.5-4.9); POTASSIUM 3.9 mmol/L (3.5-5.1); SODIUM SERUM 126 mmol/L (136-145); TOTAL PROTEIN, SERUM 6.3 g/dL (6.4-8.2); UREA NITROGEN, BLOOD 8 mg/dL (7-18)
[2017-07-15 08:05] LABS: TROPONIN I < 0.017 ng/mL (0.00-0.056)
[2017-07-15] MEDS: PANTOPRAZOLE 40 MG TABLET.DR PO SCH (08:11)
[2017-07-15] MEDS: AZATHIOPRINE 50 MG TABLET PO SCH (08:11)
[2017-07-15] MEDS: METOPROLOL SUCCINATE 25 MG TAB.SR.24H PO SCH (08:14)
[2017-07-15] MEDS: IV NS 0.9% 1,000 ML IV PRN (10:54)
[2017-07-15] MEDS: SOD FERRIC GLUC 125 MG in IV NS 0.9% 100 ML IV SCH (14:28)
[2017-07-15] MEDS ORDERED: K PHOS NEUTRAL 250 MG TABLET PO ONE (16:00)
--- NOTE | 2017-07-15 18:50 | NUR ---
RN CLOSING NOTES: NO ACUTE CHANGES NOTED W/IN SHIFT. PT TOLERATED ROOM AIR, NO SOB. RHINO RACKET ON L NARE KEPT IN PLACE AND INTACT, NO ACTIVE BLEEDING W/IN SHIFT. L AC G20 AND R HAND G22 KEPT PATENT & INTACT W/ NO S/SX OF INFECTION/ INFILTRATION NOTED. R HAND G22 W/ NS X 100 CC/HR RUNNING INFUSING WELL. PAIN MEDS GIVEN NEEDED. KEPT WELL RESTED. NEEDS ATTENDED. BED KEPT LOW & IN LOCKED POS. CALL LIGHT PLACED W/IN REACH. ENCOURAGED TO AMBULATE. ENDORSED TO PM RN FOR STEVE.
--- NOTE | 2017-07-15 19:20 | NUR ---
RN MS INITIAL NOTE PT RECEIVED IN NO ACUTE DISTRESS. ABLE TO MAKE NEEDS KNOWN. BRP WITH NO ISSUES. PT HAS R HAND 22G AND LAC 20G. RECEVIED [place] FOR PAIN RECENTLY. WILL CONTINUE TO MONITOR FOR S/S OF PAIN. COMFORT AND SAFETY MEASURES OT BE ENSURED DURING THE SHIFT.
[2017-07-15] MEDS: ATORVASTATIN 40 MG TABLET PO SCH (21:31)
[2017-07-16] MEDS: ZOLPIDEM TARTRATE 5 MG TABLET PO PRN (00:34)
[2017-07-16] MEDS: IV NS 0.9% 1,000 ML IV PRN (00:39)
[2017-07-16 04:00] VITALS: BP 124/59
[2017-07-16 04:25] VITALS: BP 124/59
[2017-07-16] MEDS: HYDROCODONE/APAP 10/325MG 1 EA TABLET PO PRN (06:42)
[2017-07-16 07:27] LABS: BASOPHILS % (AUTO) 0.8 % (0.0-2.0); EOSINOPHILS % (AUTO) 0.3 % (0.0-6.0); HEMATOCRIT 33 % (39-51); HEMOGLOBIN 10.8 g/dL (13.5-17.5); LYMPHOCYTES # (AUTO) 0.6 /CMM (0.8-4.8); LYMPHOCYTES % (AUTO) 13.2 % (20.0-44.0); MEAN CORPUSCULAR HEMOGLOBIN 31 PG (26.0-33.0); MEAN CORPUSCULAR HGB CONC 33 g/dl (31.0-36.0); MEAN CORPUSCULAR VOLUME 93 fL (80-96); MONOCYTES # (AUTO) 0.7 /CMM (0.1-1.30); MONOCYTES % (AUTO) 14.5 % (2.0-12.0); NEUTROPHILS # (AUTO) 3.5 /CMM (1.8-8.9); NEUTROPHILS % (AUTO) 71.2 % (43.0-81.0); PLATELET COUNT (AUTO) 285 /CMM (150-450); RDW COEFFICIENT OF VARIATION 17.5 (11.5-15.0); RED BLOOD CELL COUNT(AUTO) 3.51 MIL/uL (4.5-6.0); WHITE BLOOD COUNT (AUTO) 4.9 K/uL (4.3-11.0)
[2017-07-16] MEDS: PANTOPRAZOLE 40 MG TABLET.DR PO SCH (07:30)
[2017-07-16 07:32] LABS: CALCIUM, SERUM 8.3 mg/dL (8.5-10.1); CREATININE 0.7 mg/dL (0.6-1.3); PHOSPHORUS 2.2 mg/dL (2.5-4.9); POTASSIUM 4.2 mmol/L (3.5-5.1)
[2017-07-16 08:00] VITALS: BP 124/67
[2017-07-16] MEDS ORDERED: CLOPIDOGREL BISULFATE 75 MG TABLET PO SCH (09:00)
[2017-07-16] MEDS: AZATHIOPRINE 50 MG TABLET PO SCH (09:22)
[2017-07-16] MEDS: METOPROLOL SUCCINATE 25 MG TAB.SR.24H PO SCH (09:23)
[2017-07-16 12:00] VITALS: BP 116/60
[2017-07-16] MEDS: SOD FERRIC GLUC 125 MG in IV NS 0.9% 100 ML IV SCH (15:10)
[2017-07-16] MEDS ORDERED: K PHOS NEUTRAL 250 MG TABLET PO ONE (16:30)
--- NOTE | 2017-07-16 17:24 | NUR ---
PT PICKED UP BY THE IN STABLE CONDITION, DENIED ANY PAIN OR DISCOMFORT, IV D/C ,DISCHARGE INTRUSTION GIVEN.
== END 2017-07-16 17:20 | disposition home or self-care (01) | DRG 386 ==
LOC: ER 06:56 → TELE-TD 09:34 → TELE1 11:05 → MEDSG1 07-15 10:25
PROVIDERS: ADMIT Internal Medicine; ATTEND Internal Medicine
DX: K51.20 Ulcerative (chronic) proctitis without complications (principal); E87.1 Hypo-osmolality and hyponatremia; K92.2 Gastrointestinal hemorrhage, unspecified; E87.8 Other disorders of electrolyte and fluid balance, not elsewhere classified; E83.42 Hypomagnesemia; D63.8 Anemia in other chronic diseases classified elsewhere; E86.0 Dehydration; I10 Essential (primary) hypertension; E78.5 Hyperlipidemia, unspecified; I25.10 Atherosclerotic heart disease of native coronary artery without angina pectoris; K21.9 Gastro-esophageal reflux disease without esophagitis; Z98.61 Coronary angioplasty status; F41.9 Anxiety disorder, unspecified; Z79.899 Other long term (current) drug therapy; K52.3 Indeterminate colitis; Z96.659 Presence of unspecified artificial knee joint
CPT/HCPCS: 36415; 71010-TC; 80048-TC; 80053-TC; 80061-TC; 80076-TC; 81000-TC; 82306; 82728-TC; 83540-TC; 83735-TC; 83935-TC; 84100-TC; 84133-TC; 84300-TC; 84439-TC; 84443-TC; 84484-TC; 85025-TC; 86850-TC; 93307-TC; J2270; J2405; J2916; J3475; J7030; J7040; J7500

== ENCOUNTER 2019-03-03 06:05 | Inpatient (IN) | payer MEDICARE, BC ==
[~2019-03-03] VITALS: Ht 162.6 cm; Wt 63.5 kg
[~2019-03-03 06:05] MED LIST changes: -ASPI81TA2 PO; +AZAT50TA18 PO; -AZAT50TA7 PO; -BUDE9TAB PO; +CLOP75TA15 PO; -CLOP75TA2 PO; +OMEP20CA10 PO; +SERT100T PO
--- NOTE | 2019-03-03 06:20 | NUR ---
BIB AMBULANCE. PER PT WAS NOT IN HIS BASELINE MENTAL STATUS. REPORTED "HE MIGHT HAVE TAKEN A ZQUIL PILL WHICH HE DOESN'T NORMALLY TAKES". PT CURRENTLY A, [facility]. NO FACIAL DROOP, NO ATAX[place], NO TROUBLE SWALLOWING. NO WEAKNESS ON ANY SIDES ARM OR LEGS NOTED. VSS.. NO C/O PAIN OR DISOCOMFORT. PLACED ON MONITOR. WILL CONT TO MONITOR ,
--- NOTE | 2019-03-03 06:30 | NUR ---
ECG DONE. CXR DONE. FUR DRUMMER AT THE BED SIDE TO DRAW BLOOD.
--- NOTE | 2019-03-03 06:38 | NUR ---
PT LEFT FOR CT
[2019-03-03 06:41] LABS: BASOPHILS # (AUTO) 0.1 /CMM (0.0-0.2); BASOPHILS % (AUTO) 1.1 % (0.0-2.0); EOSINOPHILS % (AUTO) 1.7 % (0.0-6.0); HEMATOCRIT 39 % (39-51); HEMOGLOBIN 13.1 g/dL (13.5-17.5); LYMPHOCYTES # (AUTO) 1.2 /CMM (0.8-4.8); LYMPHOCYTES % (AUTO) 23.8 % (20.0-44.0); MEAN CORPUSCULAR HGB CONC 34 g/dl (31.0-36.0); MEAN CORPUSCULAR VOLUME 92 fL (80-96); MONOCYTES # (AUTO) 0.9 /CMM (0.1-1.30); NEUTROPHILS # (AUTO) 2.8 /CMM (1.8-8.9); NEUTROPHILS % (AUTO) 56.4 % (43.0-81.0); PLATELET COUNT (AUTO) 241 /CMM (150-450)
--- NOTE | 2019-03-03 06:46 | NUR ---
Back from ct
[2019-03-03] MEDS ORDERED: VITAMIN C (06:49)
[2019-03-03] MEDS ORDERED: COQ10 (06:49)
[2019-03-03] MEDS ORDERED: CALC-473 PO (06:49)
[2019-03-03] MEDS ORDERED: MULT-1201 PO (06:49)
[2019-03-03] MEDS ORDERED: VITAMIN D PO (06:49)
[2019-03-03] MEDS ORDERED: CENTRUM (06:49)
[2019-03-03] MEDS ORDERED: FISH OIL (06:49)
[2019-03-03] MEDS ORDERED: MESA1.2T PO (06:49)
--- NOTE | 2019-03-03 06:55 | NUR ---
20g iv on LFA started
[2019-03-03] MEDS ORDERED: ASPIRIN 325 MG TABLET PO ONE (07:00)
[2019-03-03 07:08] LABS: SODIUM SERUM 130 mmol/L (136-145)
[2019-03-03 07:09] LABS: ALANINE AMINOTRANSFERASE 30 U/L (12-78); ALBUMIN 3.3 g/dL (3.4-5.0); ALKALINE PHOSPHATASE 71 U/L (46-116); ASPARTATE AMINOTRANSFERASE 23 U/L (15-37); BILIRUBIN,DIRECT 0.1 mg/dL (0.0-0.2); BILIRUBIN,TOTAL 0.2 mg/dL (0.2-1.0); CARBON DIOXIDE 28 mmol/L (21-32); CHLORIDE 97 mmol/L (98-107); CREATININE 1.1 mg/dL (0.6-1.3); GLUCOSE 94 mg/dL (74-106); POTASSIUM 3.9 mmol/L (3.5-5.1); TOTAL PROTEIN, SERUM 6.5 g/dL (6.4-8.2); UREA NITROGEN, BLOOD 14 mg/dL (7-18)
[2019-03-03 07:15] LABS: LYMPHOCYTES % (MANUAL) 26 % (16-48); MONOCYTES % (MANUAL) 15 % (0-11.0); NEUTROPHILS % (MANUAL) 59 (42-76)
[2019-03-03] MEDS ORDERED: ASPIRIN 325 MG TABLET ONE (07:15)
--- NOTE | 2019-03-03 07:20 | NUR ---
PT BACK FROM CT SCAN ALERT AND ORIENTD X3 ABLE TO DRINK WATER TOOK ASPARING WITH PIV CLEAN DRY AND PATENT. WILL CONTINUE TO MONITOR
--- NOTE | 2019-03-03 08:01 | NUR ---
PT UP TO BATH ROOM PER MD REQUEST WALKING WITH STEADY GAIT SPEECH CLEAR AND LOGICAL.
--- NOTE | 2019-03-03 08:55 | NUR ---
RN REPORT GIVEN TO ELINOR KIDD ON 3 PT ADMITTED TO [id number] UNDER MD MARTINEZ
--- NOTE | 2019-03-03 10:00 | NUR ---
MS RN ADMITTED A 63 YEAR OLD PATIENT, AWAKE,ALERT,ORIENTEDX4, NOT IN ANY FORM OF DISTRESS, RESPIRATIONS EVEN AND UNLABORED,NO SOB NOTED, LUNGS ARE CLEAR,ABDOMEN SOFT,POSITIVE BOWEL SOUNDS,DENIES PAIN AT THIS TIME, WILL MONITOR PATIENT.
[2019-03-03] MEDS ORDERED: MAGNESIUM HYDROXIDE 30 ML UDC PO PRN (11:00)
[2019-03-03] MEDS ORDERED: Z GUARD REMEDY 2 OZ OINT TP PRN (11:00)
[2019-03-03] MEDS ORDERED: ONDANSETRON HCL/PF 4 MG/2 ML VIAL IVP PRN (11:00)
[2019-03-03] MEDS ORDERED: HYDROCODONE/APAP 5/325MG 1 EACH TABLET PO PRN (11:00)
[2019-03-03] MEDS ORDERED: ACETAMINOPHEN 325 MG TABLET PO PRN (11:00)
[2019-03-03] MEDS ORDERED: MAG HYDROX/AL HYDROX/SIMETH 30 ML UDC PO PRN (11:00)
[2019-03-03] MEDS ORDERED: ZOLPIDEM TARTRATE 5 MG TABLET PO PRN (11:00)
--- NOTE | 2019-03-03 11:00 | NUR ---
MS BERNABE WAS SEEN BY NATHAN CALIXTO/ ORDERS MADE AND CARRIED OUT.
[2019-03-03 12:00] VITALS: BP 150/82
--- NOTE | 2019-03-03 12:00 | NUR ---
MS RN CALLED CARDIO DEPT TO DO ECHO AND CAROTID DOPPLER, ORDERED STAT FOR DR EVANS.
--- NOTE | 2019-03-03 12:40 | NUR ---
MS RN ON BED, NO DISTRESS NOTED,DENIES PAIN AT THIS TIME.
[2019-03-03 16:00] VITALS: BP 141/74
--- NOTE | 2019-03-03 17:46 | NUR ---
PT AWAKE AND ALERT. REFUSED EKG. RN ELINOR NOTIFIED.
--- NOTE | 2019-03-03 17:50 | NUR ---
ms automatic glove turner and former instructions given, patient went home via private car,all needs attended.
== END 2019-03-03 18:14 | disposition home or self-care (01) | DRG 74 ==
LOC: ER 06:07 → TELE 08:46
PROVIDERS: ADMIT Internal Medicine; ATTEND Internal Medicine
DX: G90.8 Other disorders of autonomic nervous system (principal); E87.1 Hypo-osmolality and hyponatremia; K51.90 Ulcerative colitis, unspecified, without complications; K21.9 Gastro-esophageal reflux disease without esophagitis; I25.10 Atherosclerotic heart disease of native coronary artery without angina pectoris; I10 Essential (primary) hypertension; E78.5 Hyperlipidemia, unspecified; R73.9 Hyperglycemia, unspecified
CPT/HCPCS: 36415; 70450-TC; 71045-TC; 80048-TC; 80076-TC; 82962-TC; 84484-TC; 85025-TC; 87081-TC; 93307-TC; 93880-TC; G0378

== ENCOUNTER 2023-03-20 11:11 | Outpatient (CLI) | payer MEDICARE, BC ==
[~2023-03-20 11:11] MED LIST changes: +CALC-473 PO; +CENTRUM; +COQ10; +FISH OIL; -LISI-603 PO; +LISI20TA30 PO; +MESA1.2T PO; +MULT-1201 PO; -OMEP20CA10 PO; +OMEP20CA15 PO; +VITAMIN C; +VITAMIN D PO
[2023-03-20 13:15] LABS: BILIRUBIN,URINE NEGATIVE (NEGATIVE); COLOR,URINE DARK YELLOW (YELLOW); LEUKOCYTE ESTERASE ,URINE NEGATIVE (NEGATIVE); NITRITE, URINE NEGATIVE (NEGATIVE); PROTEIN,URINE NEGATIVE (NEGATIVE); UGLUCOSE NEGATIVE (NEGATIVE); UROBILINOGEN,URINE 0.2 EU/dL (0.2)
[2023-03-20 13:16] LABS: ALBUMIN 3.4 g/dL (3.4-5.0); BILIRUBIN,TOTAL 0.7 mg/dL (0.2-1.0); CALCIUM, SERUM 9.2 mg/dL (8.5-10.1); CREATININE 1.1 mg/dL (0.6-1.3); PHOSPHORUS 4.7 mg/dL (2.5-4.9); POTASSIUM 4.6 mmol/L (3.5-5.1); TOTAL PROTEIN, SERUM 6.8 g/dL (6.4-8.2)
== END 2023-03-20 23:59 | disposition home or self-care (01) ==
LOC: MSC 11:11
PROVIDERS: ATTEND Internal Medicine
DX: E87.1 Hypo-osmolality and hyponatremia (principal); I25.10 Atherosclerotic heart disease of native coronary artery without angina pectoris; Z95.5 Presence of coronary angioplasty implant and graft; I10 Essential (primary) hypertension; K51.90 Ulcerative colitis, unspecified, without complications; K21.9 Gastro-esophageal reflux disease without esophagitis
CPT/HCPCS: 83935; 83735; 84100; 84300; 81003; 80053; G0463

== ENCOUNTER 2023-03-27 11:15 | Outpatient (CLI) | payer MEDICARE, BC | END 2023-03-27 23:59 | disposition home or self-care (01) | LOC: MSC 11:15 | PROVIDERS: ATTEND Internal Medicine | DX: E87.1 Hypo-osmolality and hyponatremia (principal); I25.10 Atherosclerotic heart disease of native coronary artery without angina pectoris; Z95.5 Presence of coronary angioplasty implant and graft; I10 Essential (primary) hypertension; K51.90 Ulcerative colitis, unspecified, without complications; K21.9 Gastro-esophageal reflux disease without esophagitis ==